=== PATIENT | male | born 1985 | race Caucasian/White ===

== ENCOUNTER 2016-09-19 07:35 | Emergency (ER) | payer OTHER, MEDICAID ==
[~2016-09-19] VITALS: Ht 165.1 cm; Wt 81.6 kg
[2016-09-19 07:47] VITALS: BP 117/80
--- NOTE | 2016-09-19 07:49 | NUR ---
Patient ambulated to bed 5. RN evaluating patient at bedside.
--- NOTE | 2016-09-19 07:55 | NUR ---
PT PRESENTS TO ER FOR EVALUATION OF RASH TO LEFT FOREARM. PT STATES THE RASH APPEARED 4 DAYS AGO. PT DENIES ANY MEDICAL HX; DENIES N/V/D; SKIN IS PINK/WARM/DRY; AAOX4 WITH EVEN AND STEADY GAIT; LUNGS CLEAR BL; HR EVEN AND REGULAR; PT DENIES ANY FEVER, CP, SOB, OR COUGH AT THIS TIME; PATIENT STATES PAIN OF 0/10 AT THIS TIME; VSS; PATIENT POSITIONED FOR COMFORT; HOB ELEVATED; BEDRAILS UP X2; BED DOWN. ER MD MADE AWARE OF PT STATUS.
--- NOTE | 2016-09-19 08:10 | NUR ---
[facility] PT BEING ASSESS BY DR MALIK AT BEDSIDE
--- NOTE | 2016-09-19 08:48 | NUR ---
CHILD AND ADOLESCENT PSYCHIATRIST AT BEDSIDE
[2016-09-19 10:27] VITALS: BP 124/84
--- NOTE | 2016-09-19 10:27 | NUR ---
Patient discharged with v/s stable. Written and verbal after care instructions given and explained. Patient alert, oriented and verbalized understanding of instructions. Ambulatory with steady gait. All questions addressed prior to discharge. ID band removed. Patient advised to follow up with PMD. Rx of DIFLUCAN, LOTRIMIN given. Patient educated on indication of medication including possible reaction and side effects. Opportunity to ask questions provided and answered.
== END 2016-09-19 10:27 | disposition home or self-care (01) ==
LOC: MED 07:35 → EDBD 07:35 → MED 10:27
DX: B35.4 Tinea corporis (principal); N50.89 Other specified disorders of the male genital organs
CPT/HCPCS: 76870; 99284; Q0092

== ENCOUNTER 2017-01-17 22:25 | Emergency (ER) | payer MEDICAID, OTHER ==
[~2017-01-17] VITALS: Ht 167.6 cm; Wt 97.5 kg
[2017-01-17 22:37] VITALS: BP 149/69
--- NOTE | 2017-01-17 23:05 | NUR ---
PT TAKEN TO BED 4
--- NOTE | 2017-01-17 23:15 | NUR ---
ICE PACK APPLIED TO THE AFFECTED SITE.
--- NOTE | 2017-01-17 23:30 | NUR ---
X-RAY TECH AT BEDSIDE TO DO RIGHT FOOT X-RAY.
--- NOTE | 2017-01-17 23:36 | NUR ---
MD CAME BY BEDSIDE TO EVALUATE PATIENT.
--- NOTE | 2017-01-17 23:37 | NUR ---
Dr. Chinchilla evaluating patient at bedside.
[2017-01-17] MEDS ORDERED: KETOROLAC 60 MG/2 ML VIAL IM ONE (23:45)
--- NOTE | 2017-01-17 23:55 | NUR ---
BLOOD DRAWN BY HISTORY DEPARTMENT CHAIR.
--- NOTE | 2017-01-18 00:13 | NUR ---
TORADOL 60 MG IM GIVEN ORDERED FOR PAIN.
--- NOTE | 2017-01-18 00:47 | NUR ---
Patient discharged with v/s stable. Written and verbal after care instructions given and explained. Patient alert, oriented and verbalized understanding of instructions. Ambulatory with steady gait. All questions addressed prior to discharge. ID band removed. Patient advised to follow up with PMD. Rx of INDOMETHACIN given. Patient educated on indication of medication including possible reaction and side effects. Opportunity to ask questions provided and answered.
[2017-01-18 00:50] VITALS: BP 119/69
== END 2017-01-18 00:47 | disposition home or self-care (01) ==
LOC: MED 22:25
DX: M79.674 Pain in right toe(s) (principal); R03.0 Elevated blood-pressure reading, without diagnosis of hypertension
CPT/HCPCS: 36415; 73630; 84550; 96372; 99285; J1885; Q0092

== ENCOUNTER 2017-11-13 23:27 | Emergency (ER) | payer OTHER ==
[~2017-11-13] VITALS: Ht 167.6 cm; Wt 95.3 kg
[2017-11-13 23:31] VITALS: BP 143/69
--- NOTE | 2017-11-13 23:39 | NUR ---
PATIENT PRESENTS TO ED WITH RIGHT KNEE PAIN X1 HOUR. PATIENT STATES HE WAS AT THE [employer] CATCHING A BALL AND FELL/TWISTED HIS KNEE. PT DENIES N/V/D; SKIN IS PINK/WARM/DRY; AAOX4 WITH EVEN AND STEADY GAIT; LUNGS CLEAR BL; HR EVEN AND REGULAR; PT DENIES ANY FEVER, CP, SOB, OR COUGH AT THIS TIME; PATIENT STATES PAIN OF 10/10 AT THIS TIME; VSS; PATIENT POSITIONED FOR COMFORT; HOB ELEVATED; BEDRAILS UP X1; BED DOWN. ER MD MADE AWARE OF PT STATUS.
[2017-11-13] MEDS ORDERED: IBUPROFEN 800 MG TAB PO ONE (23:45)
--- NOTE | 2017-11-13 23:58 | NUR ---
Patient returned from XRAY.
[2017-11-14 00:42] VITALS: BP 143/69
--- NOTE | 2017-11-14 00:42 | NUR ---
Patient discharged with v/s stable. Written and verbal after care instructions given and explained. Patient alert, oriented and verbalized understanding of instructions. Ambulatory with steady gait WITH CRUTCHES. All questions addressed prior to discharge. ID band removed. Patient advised to follow up with PMD. Rx of IBUPROFEN given. Patient educated on indication of medication including possible reaction and side effects. Opportunity to ask questions provided and answered.
== END 2017-11-14 00:42 | disposition home or self-care (01) ==
LOC: MED 23:27
DX: S83.91XA Sprain of unspecified site of right knee, initial encounter (principal); X50.0XXA Overexertion from strenuous movement or load, initial encounter; Y93.64 Activity, baseball; Y92.89 Other specified places as the place of occurrence of the external cause; Y99.8 Other external cause status
CPT/HCPCS: 73562; 99284

== ENCOUNTER 2017-11-15 12:16 | Emergency (ER) | payer OTHER ==
[~2017-11-15] VITALS: Ht 167.6 cm; Wt 95.3 kg
[2017-11-15 12:17] VITALS: BP 122/78
[2017-11-15 12:34] VITALS: BP 122/78
== END 2017-11-15 12:34 | disposition home or self-care (01) ==
LOC: MED 12:16
DX: S83.91XA Sprain of unspecified site of right knee, initial encounter (principal); W19.XXXA Unspecified fall, initial encounter; Y93.89 Activity, other specified; Y92.89 Other specified places as the place of occurrence of the external cause; Y99.8 Other external cause status
CPT/HCPCS: 99281